=== PATIENT | male | born 1955 | race Caucasian/White ===

== ENCOUNTER 2018-05-15 15:19 | Emergency (ER) | payer OTHER, MEDICAID ==
[~2018-05-15] VITALS: Ht 185.4 cm; Wt 77.1 kg
[2018-05-15 15:29] VITALS: BP 124/92
== END 2018-05-15 17:18 | disposition home or self-care (01) ==
LOC: EDBD 15:19 → ER 15:32
DX: M54.9 Dorsalgia, unspecified (principal); M79.10 Myalgia, unspecified site; M19.90 Unspecified osteoarthritis, unspecified site; E78.5 Hyperlipidemia, unspecified; F12.10 Cannabis abuse, uncomplicated; Z88.0 Allergy status to penicillin; Z88.2 Allergy status to sulfonamides
CPT/HCPCS: 72100; 73502